=== PATIENT | female | born 1965 | race Caucasian/White ===

== ENCOUNTER 2017-08-18 18:28 | Inpatient (IN) | payer MEDICARE, OTHER ==
[~2017-08-18] VITALS: Ht 162.6 cm; Wt 52.6 kg
[2017-08-18] MEDS ORDERED: DIME240C2 PO (18:46)
[2017-08-18] MEDS ORDERED: QUET200T PO (18:46)
[2017-08-18] MEDS ORDERED: DALF10TA PO (18:46)
[2017-08-18] MEDS ORDERED: TAMS-12 PO (18:46)
[2017-08-18] MEDS ORDERED: AMIT25TA9 PO (18:46)
[2017-08-18] MEDS ORDERED: ASPI-991 PO (18:46)
[2017-08-18] MEDS ORDERED: BACL10TA PO (18:46)
[2017-08-18] MEDS ORDERED: LAMO200T39 PO (18:46)
[2017-08-18] MEDS ORDERED: LEVO50TA8 PO (18:48)
[2017-08-18 20:00] VITALS: BP 105/70
[2017-08-18] MEDS ORDERED: ACETAMINOPHEN 325 MG TABLET PO PRN (20:00)
[2017-08-18] MEDS ORDERED: MAG HYDROX/AL HYDROX/SIMETH 30 ML UDC PO PRN (20:00)
[2017-08-18] MEDS ORDERED: ZOLPIDEM TARTRATE 5 MG TABLET PO PRN (20:00)
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
--- NOTE | 2017-08-18 23:08 | NUR ---
ADMISSION NOTES ADMITTED THIS 51 Y/O FEMALE PATIENT ADMIT FROM [facility] ER , PT. INTIALLY CAME FROM [facility]. PT IS ON 5150 HOLD FOR GD , PER HOLD STATING IT WAS OCTOBER AND NOT KNOWING WHERE SHE WAS OR HOW SHE ARRIVED, AND DENIES TO EATING OR DRINKING FIUIDS DOESN'T KNOW HOW TO ACCESS SHELLTER AND CAN'T CARE HER SELF PT. PARANOID, DELUSIONAL ,DISORGNIZED . UPON FACE TO FACE ASSESSMENT PATIENT IS A&O X-1,2, PARANOID DISORGANIZED THOUGHTS DISHELVED , EASILY AGITATED PARANOID, PT. IS POOR HISTORIAN, POOR INSIGHT ,POOR JUDGEMENT ,V/S WNL, NO ACUTE RESPIRATORY , HX OF BIPOLAR , MULTIPLE SCLORISIS, HYPOTHRODISM ,MD AWARE AND NOTIFIED OF THE ADMISSION, PT. REFUSED TO SIGNS ON ADMISSION PAPERS,AND PT. REFUSED SKIN ASSESSMENT, PRE PT. MY SKIN IS CLEAR . ENCOURAGED PT. VERBALIZED ANY FEELING CONCERN TO STAFF, ORIENT TO UNIT POLICY, WILL CONTINUE TO MONITOR FOR Q15 SAFETY AND BEHAVIOR.
[2017-08-19 07:39] LABS: BASOPHILS % (AUTO) 0.4 % (0.0-2.0); EOSINOPHILS # (AUTO) 0.1 /CMM (0.0-0.7); EOSINOPHILS % (AUTO) 1.5 % (0.0-6.0); HEMATOCRIT 42 % (33-45); HEMOGLOBIN 14.1 g/dL (11.5-14.8); LYMPHOCYTES # (AUTO) 1.3 /CMM (0.8-4.8); LYMPHOCYTES % (AUTO) 22.1 % (20.0-44.0); MEAN CORPUSCULAR HEMOGLOBIN 33 PG (26.0-33.0); MEAN CORPUSCULAR HGB CONC 34 g/dl (31.0-36.0); MEAN CORPUSCULAR VOLUME 99 fL (82-100); MONOCYTES # (AUTO) 0.5 /CMM (0.1-1.30); MONOCYTES % (AUTO) 7.9 % (2.0-12.0); NEUTROPHILS % (AUTO) 68.1 % (43.0-81.0); PLATELET COUNT (AUTO) 313 /CMM (150-450); RDW COEFFICIENT OF VARIATION 14.2 (11.5-15.0); RED BLOOD CELL COUNT(AUTO) 4.22 MIL/uL (4.0-5.2); WHITE BLOOD COUNT (AUTO) 5.9 K/uL (4.3-11.0)
[2017-08-19 08:00] VITALS: BP 116/80
[2017-08-19 08:08] LABS: ALBUMIN 4.3 g/dL (3.4-5.0); BILIRUBIN,TOTAL 0.3 mg/dL (0.2-1.0); CALCIUM, SERUM 9.8 mg/dL (8.5-10.1); CREATININE 0.9 mg/dL (0.6-1.3); TOTAL PROTEIN, SERUM 8.3 g/dL (6.4-8.2)
[2017-08-19] MEDS ORDERED: Medication Not On Formulary EA (Dalfampridine (Ampyra) 10 MG) PO SCH (09:00)
[2017-08-19] MEDS: TAMSULOSIN 0.4 MG CAP.SR.24H PO SCH ×2 (09:17→17:10)
[2017-08-19] MEDS: NICOTINE PATCH (21MG) 21 MG PATCH.TD24 TD SCH (09:17)
[2017-08-19] MEDS: LEVOTHYROXINE SODIUM 50 MCG TABLET PO SCH (09:17)
[2017-08-19] MEDS: BACLOFEN (10 MG) 10 MG TABLET PO PRN ×2 (09:17→17:10)
[2017-08-19] MEDS: ASPIRIN EC 81 MG TABLET.DR PO SCH (09:17)
[2017-08-19] MEDS ORDERED: AMITRIPTYLINE HCL 25 MG TABLET PO PRN (14:00)
--- NOTE | 2017-08-19 14:59 | NUR ---
CALLED DR. HUIZAR FOR THE CONSULT AND LEFT A MESSAGE.
[2017-08-19 16:00] VITALS: BP 105/74
[2017-08-19] MEDS: GABAPENTIN 100 MG CAPSULE PO SCH (17:09)
[2017-08-19 20:00] VITALS: BP 105/69
[2017-08-19] MEDS: QUETIAPINE FUMARATE 100 MG TABLET PO SCH (21:43)
[2017-08-19] MEDS: LamoTRIgine 100 MG TABLET PO SCH (21:43)
[2017-08-20] MEDS: LEVOTHYROXINE SODIUM 50 MCG TABLET PO SCH (08:28)
[2017-08-20] MEDS: GABAPENTIN 100 MG CAPSULE PO SCH ×3 (08:30→16:31)
[2017-08-20] MEDS: ASPIRIN EC 81 MG TABLET.DR PO SCH (08:30)
[2017-08-20] MEDS: TAMSULOSIN 0.4 MG CAP.SR.24H PO SCH ×2 (08:30→16:31)
[2017-08-20] MEDS: NICOTINE PATCH (21MG) 21 MG PATCH.TD24 TD SCH (08:30)
[2017-08-20 08:31] VITALS: BP 110/76
[2017-08-20] MEDS: LamoTRIgine 100 MG TABLET PO SCH ×2 (08:34→21:00)
[2017-08-20] MEDS: QUETIAPINE FUMARATE 25 MG TABLET PO SCH (08:34)
[2017-08-20 15:37] VITALS: BP 119/77
[2017-08-20 20:51] VITALS: BP 122/76
[2017-08-20] MEDS: QUETIAPINE FUMARATE 100 MG TABLET PO SCH (21:00)
[2017-08-21 08:00] VITALS: BP 103/74
[2017-08-21] MEDS: QUETIAPINE FUMARATE 25 MG TABLET PO SCH (08:16)
[2017-08-21] MEDS: ASPIRIN EC 81 MG TABLET.DR PO SCH (08:16)
[2017-08-21] MEDS: LEVOTHYROXINE SODIUM 50 MCG TABLET PO SCH (08:16)
[2017-08-21] MEDS: NICOTINE PATCH (21MG) 21 MG PATCH.TD24 TD SCH (08:16)
[2017-08-21] MEDS: GABAPENTIN 100 MG CAPSULE PO SCH ×3 (08:16→16:13)
[2017-08-21] MEDS: TAMSULOSIN 0.4 MG CAP.SR.24H PO SCH ×2 (08:17→16:12)
[2017-08-21] MEDS: LamoTRIgine 100 MG TABLET PO SCH ×2 (08:17→21:26)
--- NOTE | 2017-08-21 15:42 | NUR ---
Initial Discharge Note: Patient appears to be homeless and stated that she needed placement. Patient does not have anyone to contact and did not want to provide a medicare contact specialist or number. hold worker will help form a safe and proper discharge.
[2017-08-21 16:31] VITALS: BP 102/61
[2017-08-21 20:23] VITALS: BP 123/72
[2017-08-21] MEDS: QUETIAPINE FUMARATE 100 MG TABLET PO SCH (21:26)
[2017-08-22] MEDS: LEVOTHYROXINE SODIUM 50 MCG TABLET PO SCH (07:30)
[2017-08-22 08:00] VITALS: BP 118/71
[2017-08-22] MEDS: NICOTINE PATCH (21MG) 21 MG PATCH.TD24 TD SCH (08:33)
[2017-08-22] MEDS: TAMSULOSIN 0.4 MG CAP.SR.24H PO SCH ×2 (08:33→17:34)
[2017-08-22] MEDS: LamoTRIgine 100 MG TABLET PO SCH ×2 (08:33→21:00)
[2017-08-22] MEDS: QUETIAPINE FUMARATE 25 MG TABLET PO SCH ×3 (08:34→17:34)
[2017-08-22] MEDS: GABAPENTIN 100 MG CAPSULE PO SCH ×3 (08:35→17:34)
[2017-08-22] MEDS: ASPIRIN EC 81 MG TABLET.DR PO SCH (09:00)
[2017-08-22 15:45] VITALS: BP 111/65
[2017-08-22] MEDS: LORAZEPAM 0.5 MG TABLET PO PRN (18:30)
--- NOTE | 2017-08-22 18:30 | NUR ---
rn note:Patient medicated with Ativan 1mg po for agitation.
--- NOTE | 2017-08-22 18:49 | NUR ---
RN NOTE:PATIENT REFUSED ATIVAN 1MG .
[2017-08-22] MEDS ORDERED: OLANZAPINE 10 MG VIAL IM STA (18:50)
[2017-08-22] MEDS ORDERED: LORAZEPAM INJ 2 MG/ML VIAL IM STA (19:03)
--- NOTE | 2017-08-22 19:05 | NUR ---
RN NOTE :PATIENT AGITATED AND UNPREDICTABLE CALLED WITH NEW ORDER ATIVAN 1MG IM AND ZYPREXA 5MG IM X1 .
[2017-08-22 20:10] VITALS: BP 131/81
[2017-08-22 20:13] VITALS: BP 106/62
[2017-08-22] MEDS: QUETIAPINE FUMARATE 100 MG TABLET PO SCH (22:00)
[2017-08-23] MEDS: LEVOTHYROXINE SODIUM 50 MCG TABLET PO SCH (07:30)
[2017-08-23 08:14] VITALS: BP 130/78
[2017-08-23] MEDS: TAMSULOSIN 0.4 MG CAP.SR.24H PO SCH ×2 (09:13→17:39)
[2017-08-23] MEDS: LamoTRIgine 100 MG TABLET PO SCH ×2 (09:13→21:47)
[2017-08-23] MEDS: QUETIAPINE FUMARATE 25 MG TABLET PO SCH (09:13)
[2017-08-23] MEDS: GABAPENTIN 100 MG CAPSULE PO SCH ×3 (09:13→17:39)
[2017-08-23] MEDS: ASPIRIN EC 81 MG TABLET.DR PO SCH (09:13)
[2017-08-23] MEDS: NICOTINE PATCH (21MG) 21 MG PATCH.TD24 TD SCH (09:13)
[2017-08-23] MEDS: OLANZAPINE 5 MG/TAB.RAPDIS PO SCH ×3 (09:34→21:47)
--- NOTE | 2017-08-23 13:00 | NUR ---
RN-CO: PATIENT IS CONSTANTLY IN THE NURSING STATION, ASKING FOR PAPER " I NEED 35 SHEETS OF PAPER IT SHOULD BE 35 ,YOU NEED TO COUNT THIS IN FRONT OF ME." PATIENT NEED LIMIT SETTING.
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
--- NOTE | 2017-08-23 15:40 | NUR ---
RN-CO: PATIENT CALLED [employer] CAME AND PER PATIENT REQUEST NO STAFF IS ALLOWED EXCEPT DR FELIPE RODRIGUEZ DURING HER CONVERSATION WITH THE POLICE.(APPROX 20 MIN). SHE REQUESTED THE POLICE TO INSPECT HER ROOM NOW WITH THE PRESENCE OF A STAFF. NOTED PATIENT IS VERY PARANOID, STATED TO THE POLICE. :"PEOPLE USE THIS BED AND HAS AN X RAY TO DETECT IF I HAVE SENSOR INSIDE MY BODY." "THEY USE THIS NEON LIGHT TO SEE IF I AM HIDING SOMETHING." THEY ARE TAPPING THE WINDOW OUTSIDE TO COMMUNICATE FOR THIER AGENDA." DR REYES WAS NOTIFIED REGARDING THIS INCIDENT.
[2017-08-23 16:05] VITALS: BP 127/85
--- NOTE | 2017-08-23 19:30 | NUR ---
GPS RN NOTE, RECEIVED PATIENT AWAKE AND IN BED NO S/S OR COMPLAINTS OF PAIN AT THIS TIME. PATIENT IS DISPLAYING NO S/S OF APPARENT DISTRESS AT THIS TIME. PATIENT BREATHING IS UNLABORED WITH EQUAL RISE AND FALL OF THE CHEST. PATIENT IS ALERT AND ORIENTED X 2 ON ROOM AIR WITH A SPOO2 96 %. PATIENT IS MED COMPLIANT, ANXIOUS, DISORGANIZED, PACING UP AND DOWN THE HALLWAY AT TIMES, AND NEEDS REORIENTATION. PATIENT DENIES SUICIDE IDEATIONS AND HOMICIDAL IDEATIONS AT THIS TIME. PATIENT ASSISTED WITH TURNING AND REPOSITIONING Q2HR AND PRN FOR COMFORT AND CIRCULATION. PATIENT HAS NO NEEDS AT THIS TIME. PATIENT EDUCATED ON THE USE OF THE CALL BERNARD. PATIENT BED SIDE RAILS UP X 2 FOR SAFETY. PATIENT BED IS LOCKED AND LOW WILL CONTINUE TO MONITOR AND MAINTAIN SAFETY Q15 MIN WITH THE HELP OF STAFF.
[2017-08-23 20:07] VITALS: BP 125/73
--- NOTE | 2017-08-24 05:51 | NUR ---
GPS RN NOTE, PATIENT HAS A COMPLAINT OF INDIGESTION AND IS REQUESTING MAALOX AT THIS TIME. PATIENT VITAL SIGNS ARE STABLE. GAVE MAALOX 30 ML PO Q4HR PRN ORDERED. WILL CONTINUE TO MONITOR THIS PATIENT.
--- NOTE | 2017-08-24 06:33 | NUR ---
GPS RN NOTE, PATIENT REFUSED TO HAVE HER BLOOD DRAWN THIS AM. SPA ATTENDANT OFFERED THREE TIMES BUT STILL PATIENT REFUSED STATING, " I DON'T WANT MY BLOOD TAKEN ". EDUCATED ON THE RISKS AND BENEFITS OF HAVING BLOOD DRAWN. WILL ENDORSE TO AM SHIFT NURSE AND I WILL CONTINUE TO MONITOR THIS PATIENT.
[2017-08-24 07:49] VITALS: BP 140/70
[2017-08-24] MEDS: OLANZAPINE 5 MG/TAB.RAPDIS PO SCH ×3 (08:11→22:24)
[2017-08-24] MEDS: LamoTRIgine 100 MG TABLET PO SCH ×2 (08:11→22:24)
[2017-08-24] MEDS: ASPIRIN EC 81 MG TABLET.DR PO SCH (08:11)
[2017-08-24] MEDS: GABAPENTIN 100 MG CAPSULE PO SCH ×3 (08:11→16:23)
[2017-08-24] MEDS: TAMSULOSIN 0.4 MG CAP.SR.24H PO SCH ×2 (08:11→16:22)
[2017-08-24] MEDS: NICOTINE PATCH (21MG) 21 MG PATCH.TD24 TD SCH (08:11)
[2017-08-24] MEDS: LEVOTHYROXINE SODIUM 50 MCG TABLET PO SCH (08:11)
[2017-08-24 12:11] LABS: BASOPHILS % (AUTO) 0.5 % (0.0-2.0); EOSINOPHILS # (AUTO) 0.1 /CMM (0.0-0.7); EOSINOPHILS % (AUTO) 1.3 % (0.0-6.0); HEMATOCRIT 40 % (33-45); HEMOGLOBIN 13.1 g/dL (11.5-14.8); LYMPHOCYTES # (AUTO) 1.2 /CMM (0.8-4.8); LYMPHOCYTES % (AUTO) 17.1 % (20.0-44.0); MEAN CORPUSCULAR HEMOGLOBIN 33 PG (26.0-33.0); MEAN CORPUSCULAR HGB CONC 33 g/dl (31.0-36.0); MEAN CORPUSCULAR VOLUME 100 fL (82-100); MONOCYTES # (AUTO) 0.6 /CMM (0.1-1.30); MONOCYTES % (AUTO) 8.6 % (2.0-12.0); NEUTROPHILS % (AUTO) 72.5 % (43.0-81.0); PLATELET COUNT (AUTO) 310 /CMM (150-450); RDW COEFFICIENT OF VARIATION 14.1 (11.5-15.0); RED BLOOD CELL COUNT(AUTO) 3.95 MIL/uL (4.0-5.2); WHITE BLOOD COUNT (AUTO) 6.9 K/uL (4.3-11.0)
[2017-08-24 12:25] LABS: CALCIUM, SERUM 9.3 mg/dL (8.5-10.1); CREATININE 0.8 mg/dL (0.6-1.3); POTASSIUM 4.4 mmol/L (3.5-5.1)
[2017-08-24 15:39] VITALS: BP 109/67
--- NOTE | 2017-08-24 18:41 | NUR ---
GPS RN NOTE: PT REFUSED BS CHECK AT 8276, REQUESTED NOW BS 120 NO COVERAGE PER ORDER WILL CONTINUE MONITORING FOR SAFETY AND BEHAVIOR
[2017-08-24 20:00] VITALS: BP 105/62
[2017-08-25 08:00] VITALS: BP_SYST 100; BP_SYST 108; BP_DIAS 60; BP_DIAS 66
[2017-08-25] MEDS: LEVOTHYROXINE SODIUM 50 MCG TABLET PO SCH (08:08)
[2017-08-25] MEDS: ASPIRIN EC 81 MG TABLET.DR PO SCH (08:54)
[2017-08-25] MEDS: NICOTINE PATCH (21MG) 21 MG PATCH.TD24 TD SCH (08:54)
[2017-08-25] MEDS: GABAPENTIN 100 MG CAPSULE PO SCH ×3 (08:54→16:39)
[2017-08-25] MEDS: OLANZAPINE 5 MG/TAB.RAPDIS PO SCH ×3 (08:54→21:51)
[2017-08-25] MEDS: LamoTRIgine 100 MG TABLET PO SCH ×2 (08:54→21:50)
[2017-08-25] MEDS: TAMSULOSIN 0.4 MG CAP.SR.24H PO SCH ×2 (08:54→16:39)
[2017-08-25 16:04] VITALS: BP 104/68
[2017-08-25 20:00] VITALS: BP 112/66
--- NOTE | 2017-08-25 22:40 | NUR ---
GPS RN WHILE DOING ROUNDS. PT FOUND SITTING ON THE FLOOR. ASK THE PT WHY SHE WAS SITTING ON THE FLOOR. PT STATED "I'M PRAYING." WILL ENDORSE TO NEXT SHIFT NURSE REGARDING HER BEHAVIOR. WILL CONTINUE TO MONITOR FOR SAFETY.
[2017-08-26 07:42] VITALS: BP 137/64
[2017-08-26] MEDS: LEVOTHYROXINE SODIUM 50 MCG TABLET PO SCH (09:40)
[2017-08-26] MEDS: LamoTRIgine 100 MG TABLET PO SCH ×2 (09:40→22:13)
[2017-08-26] MEDS: OLANZAPINE 5 MG/TAB.RAPDIS PO SCH ×3 (09:40→22:14)
[2017-08-26] MEDS: GABAPENTIN 100 MG CAPSULE PO SCH ×3 (09:40→16:45)
[2017-08-26] MEDS: TAMSULOSIN 0.4 MG CAP.SR.24H PO SCH ×2 (09:40→16:45)
[2017-08-26] MEDS: ASPIRIN EC 81 MG TABLET.DR PO SCH (09:40)
[2017-08-26] MEDS: NICOTINE PATCH (21MG) 21 MG PATCH.TD24 TD SCH (10:06)
[2017-08-26 16:00] VITALS: BP 109/77
[2017-08-26 20:00] VITALS: BP 106/59
[2017-08-26] MEDS: LORAZEPAM 0.5 MG TABLET PO PRN (22:28)
--- NOTE | 2017-08-26 22:31 | NUR ---
RN NOTES PT. ASKED FOR ATIVAN.. ATIVAN 1 MG PO GIVEN ORDERED, V/S STABLE
[2017-08-27 08:13] VITALS: BP 104/64
[2017-08-27] MEDS: TAMSULOSIN 0.4 MG CAP.SR.24H PO SCH ×2 (09:30→16:43)
[2017-08-27] MEDS: GABAPENTIN 100 MG CAPSULE PO SCH ×3 (09:30→16:43)
[2017-08-27] MEDS: LamoTRIgine 100 MG TABLET PO SCH ×2 (09:30→21:29)
[2017-08-27] MEDS: LEVOTHYROXINE SODIUM 50 MCG TABLET PO SCH (09:30)
[2017-08-27] MEDS: OLANZAPINE 5 MG/TAB.RAPDIS PO SCH ×3 (09:30→21:29)
[2017-08-27] MEDS: ASPIRIN EC 81 MG TABLET.DR PO SCH (09:30)
[2017-08-27] MEDS: NICOTINE PATCH (21MG) 21 MG PATCH.TD24 TD SCH (11:29)
[2017-08-27] MEDS: MAGNESIUM HYDROXIDE 30 ML UDC PO PRN (12:53)
[2017-08-27 16:00] VITALS: BP 131/67
[2017-08-27 19:40] VITALS: BP 110/74
[2017-08-28] MEDS: GABAPENTIN 100 MG CAPSULE PO SCH ×3 (08:10→16:47)
[2017-08-28] MEDS: OLANZAPINE 5 MG/TAB.RAPDIS PO SCH ×3 (08:10→21:07)
[2017-08-28] MEDS: BACLOFEN (10 MG) 10 MG TABLET PO PRN ×2 (08:10→16:47)
[2017-08-28] MEDS: LamoTRIgine 100 MG TABLET PO SCH ×2 (08:10→21:06)
[2017-08-28] MEDS: NICOTINE PATCH (21MG) 21 MG PATCH.TD24 TD SCH (08:10)
[2017-08-28] MEDS: TAMSULOSIN 0.4 MG CAP.SR.24H PO SCH ×2 (08:10→16:47)
[2017-08-28] MEDS: ASPIRIN EC 81 MG TABLET.DR PO SCH (08:10)
[2017-08-28] MEDS: LEVOTHYROXINE SODIUM 50 MCG TABLET PO SCH (08:10)
[2017-08-28 08:14] VITALS: BP 100/64
[2017-08-28 15:50] VITALS: BP 117/69
[2017-08-28] MEDS: MAGNESIUM HYDROXIDE 30 ML UDC PO PRN (16:47)
[2017-08-28 20:00] VITALS: BP 113/69
[2017-08-29 08:00] VITALS: BP 106/60
[2017-08-29] MEDS: LamoTRIgine 100 MG TABLET PO SCH ×2 (09:04→21:15)
[2017-08-29] MEDS: LEVOTHYROXINE SODIUM 50 MCG TABLET PO SCH (09:04)
[2017-08-29] MEDS: TAMSULOSIN 0.4 MG CAP.SR.24H PO SCH ×2 (09:04→17:29)
[2017-08-29] MEDS: ASPIRIN EC 81 MG TABLET.DR PO SCH (09:04)
[2017-08-29] MEDS: NICOTINE PATCH (21MG) 21 MG PATCH.TD24 TD SCH (09:05)
[2017-08-29] MEDS: GABAPENTIN 100 MG CAPSULE PO SCH ×3 (09:05→17:29)
[2017-08-29] MEDS: OLANZAPINE 5 MG/TAB.RAPDIS PO SCH ×3 (09:08→21:16)
--- NOTE | 2017-08-29 10:43 | NUR ---
Transportation: LASHAY called Angelita from the [facility] [phone]. LASHAY asked to arrange transportation for patient for tomorrow [24 hours notice, as stated in the letter provided from facility to intake]. Angelita stated that there are several transportations scheduled for that day but she will do her best to accommodate patient. LASHAY provided Angelita with her contact information and Angelita stated she will be in touch RACHAEL to confirm transportation.
--- NOTE | 2017-08-29 12:34 | NUR ---
Transportation Follow-up: LASHAY called Angelita from the [facility] [phone] and left a voicemail for her inquiring about the status of the transportation.
[2017-08-29 15:37] VITALS: BP 106/70
[2017-08-29 20:35] VITALS: BP 112/53
[2017-08-30] MEDS: LEVOTHYROXINE SODIUM 50 MCG TABLET PO SCH (07:30)
[2017-08-30 08:00] VITALS: BP 100/70
[2017-08-30] MEDS: ASPIRIN EC 81 MG TABLET.DR PO SCH (08:45)
[2017-08-30] MEDS: TAMSULOSIN 0.4 MG CAP.SR.24H PO SCH (08:45)
[2017-08-30] MEDS: NICOTINE PATCH (21MG) 21 MG PATCH.TD24 TD SCH (08:45)
[2017-08-30] MEDS: GABAPENTIN 100 MG CAPSULE PO SCH (08:45)
[2017-08-30] MEDS: LamoTRIgine 100 MG TABLET PO SCH (08:45)
[2017-08-30] MEDS: OLANZAPINE 5 MG/TAB.RAPDIS PO SCH (08:45)
--- NOTE | 2017-08-30 09:49 | NUR ---
RN-CO: Patient is calm and cooperative to care.Denied suicidal and homicidal ideation. Denied auditory and visual hallucination. No acute distress noted. Dr. Mueller ordered to discontinue hold and discharge patient home (transportation arranged by oncology social work through [facility]) today. No family to notify.
--- NOTE | 2017-08-30 10:14 | NUR ---
Transportation: Angelita from the [facility] [phone] confirmed that transportation is scheduled for 12pm today [08/30] and that pedicab driver had left the facility at 8am for draft roller picker.
--- NOTE | 2017-08-30 11:45 | NUR ---
Discharge Note: Patient will discharged back home to [address] [place] [id number] / [phone] via transportation arrange by licensed master social worker through [facility] [[phone]]. Patient has no family to notify. Upon discharge, patient appeared to be alert, oriented x4 and in a pleasant mood. Patient denied homicidal and suicidal ideation. Patient will be seen by her psychiatrist Dr. Maddi Rai, as well as by her onsite case manager Tara, [address] [place] [phone] on September 06 at 10:00am. Patient was encouraged to address substance abuse struggles with psychiatrist. Patient will also be seen by her dampener, Dr. Radha Valenzuela, [address] [address] . SW left a voicemail and made several attempts to set up a specific appointment for patient. LASHAY will follow up before patient leaves the hospital. Patient was encouraged to present at an Alcoholic Anonymous meeting on MondaySeptember 06 at 7:30am at [facility] [address]
--- NOTE | 2017-08-30 12:30 | NUR ---
ORCHESTRA DIRECTOR NOTE:PATIENT ALERT AND ORIENTED X3 STATED "I FEEL GOOD AND I UNDERSTAND ALL DISCHARGE INSTRUCTIONS "ALL PRESCRIPTION AND MED RECONCILIATION GIVEN AND EXPLAINED TO PATIENT ABLE TO VERBALIZE UNDERSTANDING .ALL BELONGINGS RETURNED TO PATIENT .VS STABLE . PATIENT SEEN BY WITH DISCHARGE ORDERS ALL ORDERS CARRIED OUT ,JOSE DRAGLINE ENGINEER NOTIFIED WITH DISCHARGE ORDERS .PATIENT DISCHARGED WITH INSPECTOR SET UP AND LAY OUT TO HER HOME AT 1230 .
== END 2017-08-30 12:30 | disposition home or self-care (01) | DRG 885 ==
LOC: GPS 18:28
PROVIDERS: ADMIT Psychiatry & Neurology Psychiatry; ATTEND Internal Medicine
DX: F25.0 Schizoaffective disorder, bipolar type (principal); F03.90 Unspecified dementia, unspecified severity, without behavioral disturbance, psychotic disturbance, mood disturbance, and anxiety; E44.0 Moderate protein-calorie malnutrition; G35 Multiple sclerosis; F23 Brief psychotic disorder; Z68.1 Body mass index [BMI] 19.9 or less, adult; E03.9 Hypothyroidism, unspecified; F41.9 Anxiety disorder, unspecified; Z91.19 Patient's noncompliance with other medical treatment and regimen; N39.41 Urge incontinence; M19.90 Unspecified osteoarthritis, unspecified site; Z79.899 Other long term (current) drug therapy; Z73.6 Limitation of activities due to disability
CPT/HCPCS: 36415; 80048-TC; 80053-TC; 80061-TC; 84443-TC; 85025-TC; 87081-TC; J2060; J3490